=== PATIENT | female | born 1980 | race Caucasian/White ===

== ENCOUNTER 2024-02-05 15:12 | Outpatient (AMB) | payer MEDICAID, SELFPAY ==
--- NOTE | 2024-02-05 15:14 | MHC.OFFVIS ---
Vital Signs 02/05/24 15:30 Weight 147 lb 8 oz BP 132/88 Blood Pressure Location Lt brachial Position Sitting Respiration 16 Pulse 88 Pulse Source Pulse Oximeter Pulse Oximetry (%) 96 Oxygen Delivery Method Room Air Intake Visit Reasons: Occipital neuralgia hypermobility syndrome Intake Note: Patient comes in for initial visit was referred by [facility]. Reports pain 12/05. Allergies No Known Allergies Allergy (Verified 02/05/24 15:26) HPI Comments Details: Bryce is very pleasant 43 years old female who presents in my office with complains on pain on the right side of the neck with radiation to the right occipital area right temporal area and all the way to the frontal area and pain behind the right eye. She reports that most painful cysts sensation is in the area where she points out at the connection of the occipital bone and the 1st vertebra supposedly Miley occipital articulation. She reports that this pain started in 2019 when she was working in the garden and fell from the wall on her extended hand and arm she ruptured couple of ligaments in her shoulder and at the same time she received this pain neck. She calls her pain migraine. She reports no or but she reports blurred vision when her pain starts. She can not sleep normally can not do activities of daily living can not take care of herself she can not function normally she is full-time student. Heat applications and movements aggravate her pain cold applications topical medications and oral medications help her pain little bit. Her pain is worse in the morning it starts the very moment she wakes up and less severe in the evening. She reports her pain in terms of tissue damage as stabbing, lancinating, pinching, cramping, crushing, tiring, exhausting, sickening, suffocating punishing, killing, spreading, radiating, piercing sensation. She was under care of [facility] in the past she received MRI of cervical spine results of which dictated as below. She was in physical therapy from 2018 to 2021, she received dry needling but actually no actually injections. She is diagnosed with Alonzo-Danlos syndrome, she reports that she can not receive steroid injection because they would increase laxity of her ligaments. 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 She is diagnose with posttraumatic stress disorder. 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 There is no significant past surgical history. She denies smoking cigarettes she denies drinking alcohol she denies recreational drugs. Review of Systems Const Reports body aches, Reports fatigue and Reports headache(s) ENT Reports Normal hearing present and Reports headache(s) Card Reports no additional complaints Resp Reports as per HPI GI Reports as per HPI Reports no additional complaints Musc Reports as per HPI Neuro Reports Normal hearing present, Denies Abnormal speech present, Reports headache(s) and Denies Sensory deficit (Neuro) Psych Reports as per HPI Endo Reports fatigue Aller/Immun Reports as per HPI Physical Exam Vital Signs: Last Vital Signs Pulse 88 02/05/24 15:30 Resp 16 02/05/24 15:30 BP 132/88 02/05/24 15:30 Pulse Ox 96 02/05/24 15:30 Oxygen Delivery Method Room Air 02/05/24 15:30 Const General: no acute distress and tired appearing Nutritional Appearance: average body habitus and thin Orientation/consciousness: patient oriented x3 Eyes General: appearance normal, both eyes and all related structures Pupils: Equal, round and reactive pupils present EOM: EOMs intact bilaterally Neck Neck: Yes full ROM Chest Chest palpation & inspection: normal inspection of the chest Resp Effort & Inspection: normal respiratory effort, able to speak in complete sentences, normal respiratory pattern, no audible wheezes and no cough Cardio Jugular venous distension: no JVD GI Inspection: Yes normal to inspection Back/Spine/Pelvis Other: There is tenderness on palpation in paraspinal and lateral right cervical regions surprisingly palpation of the atlantooccipital area helps to overcome some pain. Axial compression of the head aggravates the pain. Flexing had backwards aggravates the pain more than flexing forward. Spurling maneuver is negative on the right. Neuro General: patient oriented x3 and gait normal Cranial nerves: Yes CN's II-XII intact bilaterally, Yes Equal, round and reactive pupils present, Yes Normal hearing present and Yes Ability to bilaterally elevate shoulders present Speech: No Abnormal speech present Gait exam (Neuro): Normal gait present Motor exam (neuro): 5/5 motor strength present throughout Sensory Exam: No Sensory deficit (Neuro) Extrem General: No pedal edema Psych Speech and movement: Normal speech and movement present Affect: normal affect Attitude: cooperative Thought process: Normal thought process present Thought content: Normal thought content present Insight: Good insight present (Psych) Judgement: Good judgement present (Psych) Results Reviewed Results Reviewed: MRI of the cervical spine 08/06/2022. Alignment in vertebra there is unchanged straightening of the cervical spine curvature. No acute compression fracture. Benign hemangioma at C3. Discs and at plates no significant interval disc height loss. Spinal cord no spinal cord compression or signal abnormality. Contrast no abnormal enhancement. Soft tissue no paraspinal mass or collection. Findings by level: C2-C3, C3-C4, C4-C5: Mild bilateral facet arthropathy no spinal or foraminal stenosis. C5-C6: small broad-based central protrusion no spinal stenosis mild bilateral facet arthropathy without foraminal narrowing. C6-C7: Left paracentral disc extrusion no significant central canal stenosis no compression of the spinal cord. C7-T1: no spinal or foraminal stenosis. Assessment & Plan Assessment & Plan (1) Spondylosis of cervical joint without myelopathy: Code(s): M47.812 - Spondylosis without myelopathy or radiculopathy, cervical region Category: Medical (2) Osteoarthritis of eapnubpf-tjbymcp-lkbhi spinal region: Code(s): M47.811 - Spondylosis without myelopathy or radiculopathy, tnyobbci-hhdjobh-ojxwj region Category: Medical (3) Chronic pain syndrome: Code(s): G89.4 - Chronic pain syndrome Category: Medical Plan I offered this patient diagnostic medial branch block C2-C3 C4 on the right. She is taking benzodiazepines for anxiety disorder so she will take her benzodiazepine before the procedure. She would need to be awake for the performance of the procedure. If diagnostic medial branch block will help her pain on the right I will offer her sprint PNS. Possibility to treat her pain with spinal cord stimulation advanced all the way to C1 vertebra could be considered if medial branch block will not be working. I will see this patient few days after the medial branch block. Coding Level of Care Code New Pt Level 3 (05155) Diagnoses Spondylosis of cervical joint without myelopathy M47.812 Osteoarthritis of qnlondoy-ynskeqs-tqwig spinal region M47.811 Chronic pain syndrome G89.4
[2024-02-05 15:30] VITALS: BP 132/88; PULSE 88; RESP 16; O2SAT 96
== END 2024-02-05 15:54 | disposition home or self-care (01) ==
PROVIDERS: Visit Provider Anesthesiology
DX: M47.812 Spondylosis without myelopathy or radiculopathy, cervical region (principal); M47.811 Spondylosis without myelopathy or radiculopathy, occipito-atlanto-axial region; G89.4 Chronic pain syndrome
CPT/HCPCS: 99203

== ENCOUNTER → 2024-02-05 15:12 | Outpatient (BNVA) | payer MEDICAID, SELFPAY | PROVIDERS: Visit Provider Anesthesiology | DX: M47.812 Spondylosis without myelopathy or radiculopathy, cervical region (principal); M47.811 Spondylosis without myelopathy or radiculopathy, occipito-atlanto-axial region; G89.4 Chronic pain syndrome | CPT/HCPCS: 99202 ==